=== PATIENT | male | born 1965 | race Caucasian/White ===

== ENCOUNTER → 2017-08-24 08:22 | Outpatient (CLI) | payer OTHER, SELFPAY ==
[2017-08-24 10:14] LABS: Thyroid Stimulating Hormone 3.32 uIU/ml (0.358-3.740)
== END ==
PROVIDERS: Visit Provider Family Medicine
DX: E03.9 Hypothyroidism, unspecified (principal)
CPT/HCPCS: 36415; 84443

== ENCOUNTER → 2018-01-26 08:19 | Outpatient (CLI) | payer OTHER, SELFPAY ==
[2018-01-26 12:01] LABS: Alanine Aminotransferase 18 U/L (12-78); Albumin Level 3.9 gm/dL (3.4-5.0); Albumin/Globulin Ratio 1.1 (1.1-1.8); Alkaline Phosphatase 96 U/L (46-116); Anion Gap 9.2 mEq/L (5-15); Aspartate Amino Transferase 11 U/L (15-37); Bilirubin,Total 0.7 mg/dL (0.2-1.0); Blood Urea Nitrogen 13 mg/dL (7-18); Carbon Dioxide 27 mmol/L (21.0-32.0); Chloride 108 mmol/L (98-107); Chol/HDL Ratio 5.2 (1-3.5); Cholesterol 225 mg/dL (140-200); Creatinine,Serum 1.13 mg/dL (0.70-1.30); Estimated Glomerular Filt Rate 68 ml/min (>60); Free T4 (Free Thyroxine) 0.98 ng/dl (0.76-1.46); GFR (African American) 82 ML/MIN (>60); Globulin 3.4 gm/dl (1.3-3.2); Glucose 94 mg/dL (74-106); HDL Cholesterol 43 mg/dL (27-67); LDL Cholesterol 133 mg/dL (0-130); Potassium 4.2 mmoL/L (3.5-5.1); Sodium 140 mmol/L (136-145); Thyroid Stimulating Hormone 3.48 uIU/ml (0.358-3.740); Total Protein,Serum 7.3 gm/dL (6.4-8.2); Triglycerides 245 mg/dL (30-200); VLDL Cholesterol 49 mg/dL (0-40)
== END ==
PROVIDERS: PCP Family Medicine; Visit Provider Family Medicine
DX: E78.5 Hyperlipidemia, unspecified (principal); E03.9 Hypothyroidism, unspecified; I10 Essential (primary) hypertension
CPT/HCPCS: 36415; 80053; 80061; 84439; 84443

== ENCOUNTER → 2019-02-08 09:00 | Outpatient (CLI) | payer OTHER, SELFPAY ==
[2019-02-08 10:52] LABS: Alanine Aminotransferase 13 U/L (12-78); Albumin Level 3.9 gm/dL (3.4-5.0); Albumin/Globulin Ratio 1.2 (1.1-1.8); Alkaline Phosphatase 84 U/L (46-116); Anion Gap 14.1 mEq/L (5-15); Aspartate Amino Transferase 9 U/L (15-37); Bilirubin,Total 0.6 mg/dL (0.2-1.0); Blood Urea Nitrogen 15 mg/dL (7-18); Calcium 9.1 mg/dL (8.5-10.1); Carbon Dioxide 26 mmol/L (21.0-32.0); Chloride 104 mmol/L (98-107); Chol/HDL Ratio 5.9 (1-3.5); Cholesterol 217 mg/dL (140-200); Creatinine,Serum 1.04 mg/dL (0.70-1.30); Estimated Glomerular Filt Rate 74 ml/min (>60); GFR (African American) 90 ML/MIN (>60); Globulin 3.3 gm/dl (1.3-3.2); Glucose 92 mg/dL (74-106); HDL Cholesterol 37 mg/dL (27-67); LDL Cholesterol 129 mg/dL (0-130); Potassium 4.1 mmoL/L (3.5-5.1); Prostate Specific Ag, Diagnost 0.88 ng/mL (0.0-4.0); Sodium 140 mmol/L (136-145); Thyroid Stimulating Hormone 3.45 uIU/ml (0.358-3.740); Total Protein,Serum 7.2 gm/dL (6.4-8.2); Triglycerides 255 mg/dL (30-200); VLDL Cholesterol 51 mg/dL (0-40)
== END ==
PROVIDERS: Visit Provider Family Medicine
DX: Z12.5 Encounter for screening for malignant neoplasm of prostate (principal); E78.5 Hyperlipidemia, unspecified; E03.9 Hypothyroidism, unspecified; I10 Essential (primary) hypertension
CPT/HCPCS: 36415; 80053; 80061; 84153; 84443

== ENCOUNTER → 2019-12-28 08:34 | Outpatient (CLI) | payer OTHER, SELFPAY ==
[2019-12-28 09:27] LABS: Basophils # 0.1 K/mm3 (0-0.2); Basophils % 1.2 % (0.1-2.0); Eosinophils # 0.3 K/mm3 (0.0-0.4); Eosinophils % 6.9 % (0.1-12.0); Hematocrit 44.5 % (42.0-52.0); Hemoglobin 15.3 g/dL (14.1-18.0); Lymphocytes # 1.6 K/mm3 (0.7-4.5); Lymphocytes % 34.9 % (10-50); Mean Corpuscular HGB Conc 34.4 g/dL (31.8-35.4); Mean Corpuscular Hemoglobin 30.5 pg (27.0-31.2); Mean Corpuscular Volume 88.6 fl (80-94); Mean Platelet Volume 7.6 fl (7.4-10.4); Monocytes # 0.3 K/mm3 (0.1-1.0); Monocytes % 6.3 % (1.7-9.3); Neutrophils # 2.3 K/mm3 (1.8-7.8); Neutrophils % 50.7 % (37.0-80.0); Platelet Count 212 K/mm3 (142-424); Red Blood Count 5.02 M/mm3 (4.60-6.20); Red Cell Distribution Width 13.2 % (11.5-17.5); White Blood Count 4.5 K/mm3 (4.8-10.8)
[2019-12-28 09:55] LABS: Chloride 107 mmol/L (98-107); Potassium 4.3 mmoL/L (3.5-5.1); Sodium 140 mmol/L (136-145)
[2019-12-28 09:57] LABS: Alanine Aminotransferase 13 U/L (12-78); Alkaline Phosphatase 79 U/L (38-126); Anion Gap 12.3 mEq/L (5-15); Aspartate Amino Transferase 22 U/L (17-59); Bilirubin,Total 0.6 mg/dl (0.2-1.3); Blood Urea Nitrogen 15 mg/dl (9-20); Carbon Dioxide 25 mmol/L (22.0-30.0); Estimated Glomerular Filt Rate 69 ml/min (>60); GFR (African American) 84 ML/MIN (>60)
[2019-12-28 09:58] LABS: Albumin Level 4.3 g/dl (3.5-5.0); Albumin/Globulin Ratio 1.4 (1.1-1.8); Calcium 9.6 mg/dl (8.4-10.2); Chol/HDL Ratio 4.8 (1-3.5); Cholesterol 231 mg/dl (140-200); Glucose 95 mg/dl (74-100); HDL Cholesterol 48 mg/dl (40-60); Total Protein,Serum 7.3 g/dl (6.3-8.2); Triglycerides 251 mg/dl (30-150); VLDL Cholesterol 50 mg/dL (0-40)
[2019-12-28 10:09] LABS: Direct LDL Cholesterol 130.04 mg/dL (100-129)
[2019-12-28 10:14] LABS: T4 (Thyroxine) 8.3 ug/dl (5.53-11.0)
[2019-12-28 10:28] LABS: Thyroid Stimulating Hormone 4.18 uIU/mL (0.465-4.68)
[2019-12-29 06:22] LABS: Testosterone,Total 373 ng/dL (264-916)
== END ==
PROVIDERS: PCP Family Medicine; Visit Provider Family Medicine
DX: I10 Essential (primary) hypertension (principal); E03.9 Hypothyroidism, unspecified; E78.5 Hyperlipidemia, unspecified; R53.83 Other fatigue; G47.30 Sleep apnea, unspecified; R06.83 Snoring
CPT/HCPCS: 36415; 80053; 80061; 84403; 84436; 84443; 85025; 95806

== ENCOUNTER 2020-05-08 10:17 | Emergency (ER) | payer OTHER, SELFPAY ==
[2020-05-08 10:54] VITALS: BP 144/93; PULSE 91; RESP 19; TEMP 36.6; O2SAT 98; BMI 32.0
--- NOTE | 2020-05-08 11:07 | HMH.EDUTC ---
[facility] Disposition Clinical Impression: Exposure to COVID-19 virus Left otitis media Qualifiers: Otitis media type: suppurative Chronicity: acute Recurrence: non-recurrent Spontaneous tympanic membrane rupture: without spontaneous rupture Qualified Code(s): H66.002 - Acute suppurative otitis media without spontaneous rupture of ear drum, left ear Disposition: Home, Self-Care Condition on Discharge: Good Instructions: Middle Ear Infection, Preventing the Spread of Coronavirus Discharge Instructions Additional Instructions: Drink plenty of fluids. Take tylenol for pain or fever. Take the medications as directed. Follow up with your regular doctor. GO TO THE ER FOR ANY WORSENING SYMPTOMS Prescriptions: predniSONE [Deltasone 10mg tablet] 10 mg PO BID 4 Days #8 tab Transmission Status: Received by [facility] Cefdinir [Omnicef 300mg Capsule] 300 mg PO BID #20 cap Transmission Status: Received by [facility] Referrals: Roberto Diaz MD [Primary Care Provider] - Time of Disposition: 11:20 Medical Decision Making - Medical Records Medical records reviewed: No: I reviewed the patient's medical records. - Khari Inquiry Pt receiving controlled substance: No Vital Signs: 05/08/20 10:54 05/08/20 11:36 Temperature 97.8 F 97.8 F Temperature Source Oral Pulse Rate 91 H Pulse Rate [Left] 91 H Respiratory Rate 19 19 Blood Pressure 144/93 H Blood Pressure [Right Arm] 144/93 H Blood Pressure Mean [Right Arm] 110 Blood Pressure Source [Right Arm] Automatic Cuff Blood Pressure Position [Right Arm] Supine 02 Sat by Pulse Oximetry 98 Oxygen Delivery Method Room Air - Lab Data Lab Results 05/08/20 10:00: Chlamy pneumoniae PCR Not detected, Adenovirus (PCR) Not detected, B. pertussis DNA (PCR) Not detected, Coronavirus OC43 (PCR) Not detected, Coronavirus HKU1 (PCR) Not detected, Coronavirus 229E (PCR) Not detected, SARS-CoV-2 (PCR) Detected A, Coronavirus NL63 (PCR) Not detected, Human Metapneumovir PCR Not detected, Influenza A (H1) PCR Not detected, Influ A (H1N1/09) PCR Not detected, Influenza A (H3) PCR Not detected, Influenza Type A (PCR) Not detected, Influenza Type B (PCR) Not detected, M. pneumoniae (PCR) Not detected, Parainfluenza 1 (PCR) Not detected, Parainfluenza 2 (PCR) Not detected, Parainfluenza 3 (PCR) Not detected, Parainfluenza 4 (PCR) Not detected, RSV (PCR) Not detected, Entero/Rhino (PCR) Not detected [facility] HPI - General Stated complaint: ear pain Time Seen by Provider: 05/08/20 11:07 Mode of Arrival: Ambulatory Source of Information: Patient Limitations: No Limitations Description of Symptoms (Recalled from Triage Doc. by RN): Left ear pain- Covid testing- exposure no symptoms HEENT Symptoms (Recalled from RN notes): No Resp Symptoms (Recalled from RN notes): No Skin Symptoms (Recalled from RN notes): No MS Symptoms (Recalled from RN notes): No Functional Status (Recalled from RN notes): wnl - History of Present Illness Provider Complaint: He c/o right ear pain for the past 2 days. He has also been exposed to covid recently (one of his coworkers has covid). He has had kind of frequent episodes of sinusitis over the past several months. He was last treated for a sinus infection around 3 weeks ago. - Related Data Home Medications Medication Instructions Recorded Confirmed Aspirin [Low Dose Aspirin EC] 81 mg PO DAILY 01/27/19 03/13/20 Levothyroxine Sodium 75 mcg PO DAILY 01/27/19 03/13/20 [Levothyroxine 75mcg (0.075mg) Tab] Niacin [Slo-Niacin] 250 mg PO DAILY 01/27/19 03/13/20 lisinopriL [Lisinopril 10mg Tab] 10 mg PO DAILY 01/27/19 03/13/20 Previous Rx's Medication Instructions Recorded Cefdinir [Omnicef 300mg Capsule] 300 mg PO BID #20 cap 05/08/20 predniSONE [Deltasone 10mg tablet] 10 mg PO BID 4 Days #8 tab 05/08/20 Allergies Allergy/AdvReac Type Severity Reaction Status Date / Time No Known Allergies Allergy V
[2020-05-08 11:36] VITALS: BP 144/93; PULSE 91; RESP 19; TEMP 36.6; O2SAT 98
[2020-05-08 12:25] LABS: Adenovirus,PCR Not Detected (NotDetected); Bordetella Pertussis Not Detected (NotDetected); Chlamydophila Pneumoniae, PCR Not Detected (NotDetected); Coronavirus 229E Not Detected (NotDetected); Coronavirus NL63 Not Detected (NotDetected); Coronavirus OC43 Not Detected (NotDetected); Coronovirus HKU1,PCR Not Detected (NotDetected); Human Metapneumovirus Not Detected (NotDetected); Influenza A, PCR Not Detected (NotDetected); Influenza AH1, 2009 Not Detected (NotDetected); Influenza AH1, PCR Not Detected (NotDetected); Influenza AH3,PCR Not Detected (NotDetected); Influenza B, PCR Not Detected (NotDetected); Mycoplasma Pneumoniae, PCR Not Detected (NotDetected); Parainfluenza 1, PCR Not Detected (NotDetected); Parainfluenza 2, PCR Not Detected (NotDetected); Parainfluenza 3, PCR Not Detected (NotDetected); Parainfluenza 4, PCR Not Detected (NotDetected); Respiratory Syncytial Virus Not Detected (NotDetected); Rhinovirus/Enterovirus Not Detected (NotDetected)
[2020-05-08 15:56] LABS: Coronavirus 19, PCR Detected (NotDetected)
--- NOTE | 2020-05-08 16:27 | PC.NURSE ---
PT NOTIFIED OF POSITIVE COVID TEST
== END 2020-05-08 11:37 | disposition home or self-care (01) ==
PROVIDERS: Emergency Provider Nurse Practitioner Family; PCP Family Medicine
DX: U07.1 COVID-19 (principal); H66.002 Acute suppurative otitis media without spontaneous rupture of ear drum, left ear; I10 Essential (primary) hypertension; Z87.442 Personal history of urinary calculi; E03.9 Hypothyroidism, unspecified; Z87.891 Personal history of nicotine dependence; Z79.899 Other long term (current) drug therapy
CPT/HCPCS: 87581; 87633; 87798; 99201; U0003

== ENCOUNTER → 2021-09-13 08:11 | Outpatient (CLI) | payer OTHER, SELFPAY ==
[2021-09-13 09:30] LABS: Alanine Aminotransferase 15 U/L (12-78); Albumin Level 4.4 g/dl (3.5-5.0); Albumin/Globulin Ratio 1.6 (1.1-1.8); Alkaline Phosphatase 89 U/L (38-126); Aspartate Amino Transferase 24 U/L (17-59); Bilirubin,Total 0.7 mg/dl (0.2-1.3); Blood Urea Nitrogen 14 mg/dl (9-20); Calcium 9.3 mg/dl (8.4-10.2); Carbon Dioxide 25 mmol/L (22.0-30.0); Chloride 106 mmol/L (98-107); Chol/HDL Ratio 5.3 (1-3.5); Cholesterol 243 mg/dl (140-200); Estimated Glomerular Filt Rate 69 ml/min (>60); GFR (African American) 84 ML/MIN (>60); Globulin 2.8 g/dL (1.3-3.2); Glucose 98 mg/dl (74-100); HDL Cholesterol 46 mg/dl (40-60); Sodium 138 mmol/L (136-145); Total Protein,Serum 7.2 g/dl (6.3-8.2); Triglycerides 257 mg/dl (30-150); VLDL Cholesterol 51 mg/dL (0-40)
[2021-09-13 09:41] LABS: Direct LDL Cholesterol 121.64 mg/dL (100-129)
[2021-09-13 09:47] LABS: Free T4 (Free Thyroxine) 1.15 ng/dl (0.78-2.19)
[2021-09-13 09:59] LABS: Prostate Specific Ag, Diagnost 0.937 ng/ml (0.0-4.0); Thyroid Stimulating Hormone 3.84 uIU/mL (0.465-4.68)
== END ==
PROVIDERS: Visit Provider Family Medicine
DX: E03.9 Hypothyroidism, unspecified (principal); I10 Essential (primary) hypertension; E78.5 Hyperlipidemia, unspecified; Z12.5 Encounter for screening for malignant neoplasm of prostate
CPT/HCPCS: 36415; 80053; 80061; 84153; 84439; 84443

== ENCOUNTER → 2022-09-17 07:48 | Outpatient (CLI) | payer OTHER, SELFPAY ==
[2022-09-17 09:06] LABS: Alanine Aminotransferase 15 U/L (12-78); Albumin/Globulin Ratio 1.5 (1.1-1.8); Alkaline Phosphatase 75 U/L (38-126); Anion Gap 14.1 mEq/L (5-15); Aspartate Amino Transferase 24 U/L (17-59); Bilirubin,Total 0.5 mg/dl (0.2-1.3); Blood Urea Nitrogen 15 mg/dl (9-20); Calcium 8.8 mg/dl (8.4-10.2); Carbon Dioxide 28 mmol/L (22.0-30.0); Chloride 101 mmol/L (98-107); Chol/HDL Ratio 4.2 (1-3.5); Cholesterol 193 mg/dl (140-200); Estimated Glomerular Filt Rate 62 ml/min (>60); GFR (African American) 76 ML/MIN (>60); Globulin 2.7 g/dL (1.3-3.2); Glucose 89 mg/dl (74-100); HDL Cholesterol 46 mg/dl (40-60); Potassium 4.1 mmoL/L (3.5-5.1); Sodium 139 mmol/L (136-145); Total Protein,Serum 6.7 g/dl (6.3-8.2); Triglycerides 151 mg/dl (30-150); VLDL Cholesterol 30 mg/dL (0-40)
[2022-09-17 09:17] LABS: Direct LDL Cholesterol 116.05 mg/dL (100-129)
[2022-09-17 09:37] LABS: Prostate Specific Ag Screen 1.9 ng/ml (0.0-4.0); Thyroid Stimulating Hormone 3.66 uIU/mL (0.465-4.68)
== END ==
PROVIDERS: PCP Family Medicine; Visit Provider Family Medicine
DX: E03.9 Hypothyroidism, unspecified (principal); I10 Essential (primary) hypertension; E78.5 Hyperlipidemia, unspecified; Z12.5 Encounter for screening for malignant neoplasm of prostate
CPT/HCPCS: 36415; 80053; 80061; 84443; G0103

== ENCOUNTER 2022-10-21 11:03 | Emergency (ER) | payer OTHER, SELFPAY ==
[2022-10-21 11:03] VITALS: BP 180/97; PULSE 108; RESP 18; TEMP 36.7; O2SAT 95; BMI 31.4
--- NOTE | 2022-10-21 11:14 | EXP.UTC ---
Discharge Plan Disposition Patient Disposition: Home, Self-Care Condition: Good Prescriptions Prescriptions: New azithromycin [Zithromax] 250 mg tablet 250 mg PO UD DOSE PK Qty: 6 0RF Rx Instructions: Take two (2) tablets today, then one (1) tablet days #2 thru #5 benzonatate [benzonatate] 100 mg capsule 100 mg PO TIDP PRN (Reason: Cough) Qty: 30 0RF No Action aspirin 81 MG tablet,delayed release (DR/EC) 81 mg PO DAILY levothyroxine 75 MCG tablet 75 mcg PO DAILY lisinopril 10 MG tablet 10 mg PO DAILY niacin 500 MG tablet extended release 250 mg PO DAILY prednisone 10 MG tablet 10 mg PO BID 4 Days Qty: 8 0RF cefdinir 300 MG capsule 300 mg PO BID Qty: 20 0RF Referrals Follow up/Referrals: Roberto Diaz MD [Primary Care Provider] - See instructions Activity Restrictions/Add. Instructions Additional Instructions/Restrictions: Drink plenty of fluids. Take tylenol or ibuprofen for pain or fever. Take the medications as directed. Follow up with your regular doctor. GO TO THE ER FOR ANY WORSENING SYMPTOMS Clinical Impressions Clinical Impression: Pharyngitis Instructions Patient Instructions: DI for Pharyngitis/Tonsillopharyngitis -- Adult, Azithromycin Discharge ED Provider: Jeffrey Tay [facility] General Stated complaint: Sore throat Mode of Arrival: Ambulatory Source of Information: Patient Limitations: No Limitations Time Seen by Provider: 10/21/22 11:14 Description of Symptoms (Recalled from Triage Doc. by RN): Patient reports a sore throat since Thursday. No other symptoms. HEENT Symptoms (Recalled from RN notes): Yes Resp Symptoms (Recalled from RN notes): No Skin Symptoms (Recalled from RN notes): No MS Symptoms (Recalled from RN notes): No Functional Status (Recalled from RN notes): wnl History of Present Illness Provider Complaint: He c/o sore throat and malaise for the past 3 days. Related Data Home Medications Medication Instructions Recorded Confirmed aspirin 81 mg tablet,delayed 81 mg PO DAILY Blood thinner 01/27/19 03/13/20 release levothyroxine 75 mcg tablet 75 mcg PO DAILY THYROID 01/27/19 03/13/20 lisinopril 10 mg tablet 10 mg PO DAILY BP 01/27/19 03/13/20 niacin 500 mg tablet,extended 250 mg PO DAILY UNNOWN 01/27/19 03/13/20 release Previous Rx's Medication Instructions Recorded cefdinir 300 mg capsule 300 mg PO BID #20 caps 05/08/20 prednisone 10 mg tablet 10 mg PO BID 4 days #8 tabs 05/08/20 azithromycin 250 mg tablet 250 mg PO UD DOSE PK #6 tabs 10/21/22 (Zithromax) benzonatate 100 mg capsule 100 mg PO TIDP PRN Cough #30 caps 10/21/22 Allergies Allergy/AdvReac Type Severity Reaction Status Date / Time No Known Allergies Allergy Verified 05/08/20 10:58 Worker's Comp Is this a Worker's Comp case?: No PFSH [facility] Disclaimer: The information contained in this section may have been updated after the patient was seen, as this information can be updated by other users. Social History Smoking Status: Never smoker second hand exposure: No alcohol intake: never substance use type: denies use current occupational status: employed Travel in the last 8 weeks: None household members: spouse and children housing: house current occupational exposures/hazards: No caffeine: No ROS Obtained: Yes All systems reviewed & no additional complaints except as documented Constitutional Constitutional: Reports chills and Reports fever(s) Eyes Eyes: Denies eye discharge ENT Ears, Nose, Mouth, and Throat: Reports as per HPI Cardiovascular Cardiovascular: Denies chest pain Respiratory Respiratory: Denies chest congestion and Reports cough Gastrointestinal Gastrointestingal: Reports nausea; Denies abdominal pain, constipation, cramping, diarrhea or vomiting Musculoskeletal Musculoskeletal: Denies arthralgias Integumentary/
[2022-10-21 11:18] LABS: UTC Strep Screen (Rapid) Negative (Negative)
[2022-10-21 11:43] VITALS: BP 180/97; PULSE 108; RESP 18; TEMP 36.7; O2SAT 95
== END 2022-10-21 11:44 | disposition home or self-care (01) ==
PROVIDERS: Emergency Provider Nurse Practitioner Family; PCP Family Medicine
DX: J02.9 Acute pharyngitis, unspecified (principal)
CPT/HCPCS: 87880; 99212; 99214; G0463

== ENCOUNTER 2023-09-07 08:34 | Outpatient (CLI) | payer OTHER, SELFPAY ==
[2023-09-07 09:30] LABS: Alanine Aminotransferase 16 U/L (12-78); Albumin Level 4.5 g/dl (3.5-5.0); Albumin/Globulin Ratio 1.7 (1.1-1.8); Alkaline Phosphatase 87 U/L (38-126); Aspartate Amino Transferase 25 U/L (17-59); Bilirubin,Total 0.7 mg/dl (0.2-1.3); Blood Urea Nitrogen 20 mg/dl (9-20); Calcium 9.7 mg/dl (8.4-10.2); Carbon Dioxide 25 mmol/L (22.0-30.0); Chloride 110 mmol/L (98-107); Chol/HDL Ratio 4.6 (1-3.5); Cholesterol 256 mg/dl (140-200); Estimated Glomerular Filt Rate 57 ml/min (>60); GFR (African American) 69 ML/MIN (>60); Globulin 2.7 g/dL (1.3-3.2); Glucose 97 mg/dl (74-100); HDL Cholesterol 56 mg/dl (40-60); Sodium 144 mmol/L (136-145); Total Protein,Serum 7.2 g/dl (6.3-8.2); Triglycerides 187 mg/dl (30-150); VLDL Cholesterol 37 mg/dL (0-40)
[2023-09-07 09:40] LABS: Direct LDL Cholesterol 137.22 mg/dL (100-129)
[2023-09-07 10:00] LABS: Thyroid Stimulating Hormone 3.35 uIU/mL (0.465-4.68)
== END 2023-09-07 23:59 | disposition home or self-care (01) ==
LOC: LAB 08:35
PROVIDERS: PCP Family Medicine; Visit Provider Family Medicine
DX: E78.5 Hyperlipidemia, unspecified (principal); E03.9 Hypothyroidism, unspecified; I10 Essential (primary) hypertension
CPT/HCPCS: 36415; 80053; 80061; 84443

== ENCOUNTER 2024-03-07 08:06 | Outpatient (CLI) | payer OTHER, SELFPAY ==
[2024-03-07 08:55] LABS: Albumin Level 4.5 g/dl (3.5-5.0); Chloride 106 mmol/L (98-107); Sodium 139 mmol/L (136-145)
[2024-03-07 08:56] LABS: Potassium 4.1 mmoL/L (3.5-5.1)
[2024-03-07 08:58] LABS: Alanine Aminotransferase 15 U/L (12-78); Albumin/Globulin Ratio 1.5 (1.1-1.8); Anion Gap 12.1 mEq/L (5-15); Aspartate Amino Transferase 22 U/L (17-59); Blood Urea Nitrogen 16 mg/dl (9-20); Carbon Dioxide 25 mmol/L (22.0-30.0); Estimated Glomerular Filt Rate 52 ml/min (>60); GFR (African American) 63 ML/MIN (>60); Total Protein,Serum 7.5 g/dl (6.3-8.2)
[2024-03-07 08:59] LABS: Alkaline Phosphatase 77 U/L (38-126); Bilirubin,Total 0.6 mg/dl (0.2-1.3); Chol/HDL Ratio 5.1 (1-3.5); Cholesterol 234 mg/dl (140-200); Glucose 103 mg/dl (74-100); HDL Cholesterol 46 mg/dl (40-60); Triglycerides 233 mg/dl (30-150); VLDL Cholesterol 47 mg/dL (0-40)
[2024-03-07 09:09] LABS: Direct LDL Cholesterol 135.28 mg/dL (100-129)
[2024-03-07 09:29] LABS: Thyroid Stimulating Hormone 5.53 uIU/mL (0.465-4.68)
== END 2024-03-07 23:59 | disposition home or self-care (01) ==
LOC: LAB 08:07
PROVIDERS: PCP Family Medicine; Visit Provider Family Medicine
DX: I10 Essential (primary) hypertension (principal); E78.5 Hyperlipidemia, unspecified; E03.9 Hypothyroidism, unspecified; Z12.5 Encounter for screening for malignant neoplasm of prostate
CPT/HCPCS: 36415; 80053; 80061; 84443; G0103

== ENCOUNTER 2024-10-19 08:23 | Outpatient (CLI) | payer OTHER, SELFPAY ==
--- OUTSIDE RECORDS SUMMARY | 2024-01-19 09:45 | XMS_ITS ---
[facility] [address] [place] [phone] Care Team Providers Care Medical Superintendent Name Role Phone Merlene Hearnian Primary Care Provider Nelson Diaz [phone] Allergies No Known Allergies Results Component Value Reference Range Notes H-TSH Reviewed date:03/07/2024 12:56:26 PM Interpretation: Performing Lab: Notes/Report: H-Lipid Panel Reviewed date:03/07/2024 12:56:39 PM Interpretation: Performing Lab: Notes/Report: H-CMP Reviewed date:03/07/2024 12:56:53 PM Interpretation: Performing Lab: Notes/Report: H-PSA Reviewed date:03/07/2024 12:57:13 PM Interpretation: Performing Lab: Notes/Report: REASON FOR VISIT CHECKUP, Needs labs with PSA, Tdap, & shingles vaccine Medications Medication SIG (Take, Route, Frequency, Duration) Notes Start Date End Date Status Levothyroxine Sodium 75 MCG 1 tab(s) ora lly once a day Active amLODIPine Besylate 10 MG 1 tablet Orall y Once a day Active Niacin ER 250 MG 1 tab(s) orally once a day Active Aspirin Adult Low Dose 81 MG 1 tab(s) or ally once a day Active amLODIPine Besylate 5 MG TAKE 1 TABLET B Y MOUTH ONCE DAILY for 30 Active Lisinopril 20 MG 1 tab(s) Orally once daily Active Vital Signs Blood pressure systolic 144 mm Hg 01/19/20 24 Blood pressure diastolic 90 mm Hg 024 Heart Rate 73 /min 01/19/2024 Height 68.50 in 01/19/2024 Weight 226 lbs 01/19/2024 BMI 33.86 kg/m2 01/19/2024 Encounters Encounter Location Date Provider Diagnosis [facility] [address] [facility] [address] [place] [phone] 01/19/2024 Nelson Diaz Essential hypertensi on I10 ; Dyslipidemia E78.5 ; Acquired hypothyroidism E03.9 and Screening for prostate cancer Z12.5 Assessments Encounter Date Diagnosis (ICD Code) Assessment Notes Treatment Notes Treatment Clinical Notes Section Notes 01/19/2024 Essential hypertension (ICD-10 - I10) 01/19/2024 Dyslipidemia (ICD-10 - E78.5) 01/19/2024 Acquired hypothyroidism (ICD-10 - E03.9) 01/19/2024 Screening for prostate cancer (ICD-10 - Z12.5) Plan Of Treatment Medication Medication Name Sig Start Date Stop Date Notes amLODIPine Besylate 10 MG 1 tablet Orally Once a day Lisinopril 20 MG 1 tab(s) Orally once daily Next Appt Details Follow Up: 3 Months, Reason: Progress Notes * HENOK GALDAMEZDOB: 5 (59 yo M)Acc No.[id number]:01/19/2024 Progress Notes Patient: HENOK NAVARRO Provider: Nelson Diaz M.D. :1965 A ge:58 Y S ex:Male Date:01/19/2024 Address:[address] [place] [address] [address] , [id number] Pcp:Solitario Hearn Subjective: * Chief Complaints: * 1 . CHECKUP. 2. Needs labs with PSA, Tdap, & shingles vaccine. * HPI: C ardiology: Pt presents today for a check up on hypertension. Overall his blood pressure is improved but still gets elevated systolic readings at home in the 140s. Diastolic readings are typically in the 80s. Denies : Chest Pain. D enies : Palpitations. D enies : Leg Edema. D enies : Headaches. * ROS: D ERMATOLOGY: no R agus. n o H martha. G ASTROENTEROLOGY: no N ausea. n o V omiting. n o D iarrhea.? U ROLOGY: no D ifficulty urinating. n o B lood in urine. * Medical History: H [place], Hyperlipidemia, COVID-19 infection - 05/2020. * Surgical History: n one . * Hospitalization/Major Diagno stic Procedure: c hest injury . * Family History: F ather: alive, heart disease. M other: alive. 3 son(s) - healthy. . * Social History: C URRENT TOBACCO USE S moking Status: Patient does NOT smoke, Second hand smoke exposure: No. C affeine: yes, frequency:. Exercise: no. Home smoke detector use: yes. Marital Status: . New since last visit: none. Occupation: [employer] Maintenance. Past smoking status: no. Recreational drug use: no. Alcohol: socially, Type: , Frequency: ,Years: , Determination:. * Medications: T aking Aspirin Adult Low Dose 81 MG Tablet Delayed Release 1 tab(s) orally once a day , Taking Niacin ER 250 MG Capsule Extended Release 1 tab(s) orally once a day , Taking Levothyroxine Sodium 75 MCG Tablet 1 tab(s) orally once a day , Taking Lisinopril 20 MG Tablet 1 tab(s) Orally once daily , Taking amLODIPine Besylate 5 MG Tablet TAKE 1 TABLET BY MOUTH ONCE DAILY , Medication List reviewed and reconciled with the patient * Allergies: N .K.D.A. Objective: * Vitals: W t:226, Temp:97.7, BP:144/90, HR:73, Nurse:JANNET, Ht: 68.50, BMI:33.86. * Examination: C ardiology: General Appearance: p leasant, NAD. Heart sounds: R RR, normal S1, S2. Murmur, click , gallop: n one. Lungs: c lear, no rales or wheezes. Extremities: n o leg edema. Assessment: * Assessment: 1. E ssential hypertension - I10 (Primary) 2 . D yslipidemia - E78.5 ? 3 . A cquired hypothyroidism - E03.9 4 . S creening for prostate cancer - Z12.5 Plan: * Treatment: * Labs: * L ab: H-Lipid Panel (Collection Date & Time - 03/07/2024) ?Lab: H-PSA (Collection Date & Time - 03/07/2024)* see duplicate order ?Lab: H-CMP (Collection Date & Time - 03/07/2024)* see duplicate order ?Lab: H-TSH (Collection Date & Time - 03/07/2024)* see duplicate order * Follow Up: 3 Months * Billing Information: * Visit Code: 80759 Office Visit, Est Pt., Level 3. * Procedure Codes: * Electronic signature of Nelson Diaz MD on 10/19/2024 at 08:26 AM EDT Sign off status: Pending * Provider: Nelson Diaz M.D. Date: 0 01/19/2024 Generated for Kalpana veronica/Rogelio/Gutierrez on: 0 10/19/2024 08:26 AM EDT History and Physical Notes * HPI (History of Present Illness) Category Sub-Category Detail Notes Category Not es Cardiology Chest Pain Palpitations Leg Edema Headaches Examination Category Sub-Category Detail Notes Category Not es Cardiology Lungs: clear, no rales or wheezes Heart sounds: RRR, normal S1, S2 Extremities: no leg edema Murmur, click , gallop: none General Appearance: pleasant, NAD
--- OUTSIDE RECORDS SUMMARY | 2024-03-15 06:45 | XMS_ITS ---
[facility] [address] [facility] [address] [facility] [address] [place] [phone] Care Team Providers Care Outside Machinist Supervisor Name Role Phone Solitario Hearn Primary Care Provider [phone] Nelson Mendoza [phone] Allergies No Known Allergies REASON FOR VISIT checkup, Needs shingles & Tdap. Medications Medication SIG (Take, Route, Frequency, Duration) Notes Start Date End Date Status Lisinopril 20 MG 1 tab(s) Orally once daily Active amLODIPine Besylate 10 MG 1 tablet Orall y Once a day Active Levothyroxine Sodium 88 MCG 1 tab(s) Ora lly once a day Active Aspirin Adult Low Dose 81 MG 1 tab(s) or ally once a day Active Niacin ER 250 MG 1 tab(s) orally once a day Active Vital Signs Blood pressure systolic 134 mm Hg 03/15/20 24 Blood pressure diastolic 80 mm Hg 024 Heart Rate 74 /min 03/15/2024 Height 68.50 in 03/15/2024 Weight 226.6 lbs 03/15/2024 BMI 33.95 kg/m2 03/15/2024 Encounters Encounter Location Date Provider Diagnosis [facility] [address] [facility] [address] [place] [phone] 03/15/2024 Nelson Diaz Essential hypertensi on I10 ; Dyslipidemia E78.5 and Acquired hypothyroidism E03.9 Assessments Encounter Date Diagnosis (ICD Code) Assessment Notes Treatment Notes Treatment Clinical Notes Section Notes 03/15/2024 Essential hypertension (ICD-10 - I10) 03/15/2024 Dyslipidemia (ICD-10 - E78.5) Reinforced diet 03/15/2024 Acquired hypothyroidism (ICD-10 - E03.9) Plan Of Treatment Medication Medication Name Sig Start Date Stop Date Notes Lisinopril 20 MG 1 tab(s) Orally once daily amLODIPine Besylate 10 MG 1 tablet Orally Once a day Levothyroxine Sodium 88 MCG 1 tab(s) Orally once a day Treatment Notes Assessment Notes Dyslipidemia Reinforced diet Next Appt Details Follow Up: 6 Months, Reason: Progress Notes * HENOK GALDAMEZDOB: 5 (59 yo M)Acc No.[id number]:03/15/2024 Progress Notes Patient: HENOK NAVARRO Provider: Nelson Diaz M.D. :1965 A ge:58 Y S ex:Male Date:03/15/2024 Address:[address] [place] [address], [facility], [id number] Pcp:Solitario Hearn Subjective: * Chief Complaints: * 1 . Checkup. 2. Needs shingles & Tdap.. * HPI: C ardiology: He returns today for follow-up on his blood pressure and review of recent blood work. He continues to monitor blood pressure at home and reports more consistently normal readings. * ROS: D ERMATOLOGY: no R agus. n o H martha. G ASTROENTEROLOGY: no N ausea. n o V omiting. n o D iarrhea.? U ROLOGY: no D ifficulty urinating. n o B lood in urine. * Medical History: H [place], Hyperlipidemia, COVID-19 infection - 05/2020, Mild renal insufficiency. * Surgical History: n one . * [...] . New since last visit: none. 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 Recreational drug [...] Orally once daily , Taking amLODIPine Besylate 10 MG Tablet 1 tablet Orally Once a day , Medication List reviewed and reconciled with the patient * Allergies: N .K.D.A. Objective: * Vitals: W t:226.6, Temp:97.9, BP:134/80, HR:74, Nurse:JANNET, Ht: 68.50, BMI:33.95. * Examination: C ardiology: General Appearance: p leasant, NAD. HEENT: u nremarkable. Carotid upstroke: n ormal, no bruits. Heart sounds: R RR, normal S1, S2. Murmur, click , gallop: n one. Lungs: c lear, no rales or wheezes. Extremities: n o leg edema. * Physical Examination: L ABS: See labs r eviewed with patient. TSH is elevated.? Lipids borderline high. Creatinine 1.4.. Assessment: * Assessment: 1. E ssential hypertension - I10 (Primary) 2 . D yslipidemia - E78.5 ? 3 . A cquired hypothyroidism - E03.9 Plan: * Treatment: 2. D yslipidemia Notes: Reinforced diet 3. A cquired hypothyroidism Increase Levothyroxine Sodium Tablet, 88 MCG, 1 tab(s), Orally, once a day, 90, Refills 1. ? * Follow Up: 6 Months * Billing Information: * Visit Code: 38177 Office Visit, Est Pt., Level 3. * Procedure Codes: * Electronic signature of Nelson Diaz MD on 10/19/2024 at 08:26 AM EDT Sign off status: Pending * Provider: Nelson Diaz M.D. Date: 05/15/2023 Generated for Kalpana veronica/Rogelio/Gutierrez on: 10/19/2024 08:26 AM EDT History and Physical Notes * Physical Examination Category Sub-Category Detail Notes Section Note s LABS See labs reviewed with danielle cárdenas. TSH is elevated. Lipids borderline high. Creatinine 1.4. Examination Category Sub-Category Detail Notes Category Not es Cardiology Lungs: clear, no rales or wheezes HEENT: unremarkable Heart sounds: RRR, normal S1, S2 Abdomen: Carotid upstroke: normal, no bruits Extremities: no leg edema Murmur, click , gallop: none General Appearance: pleasant, NAD
--- OUTSIDE RECORDS SUMMARY | 2024-10-13 11:45 | XMS_ITS ---
Author Organization [facility] Address [address] [facility] [address] [facility] [address] [place] [id number] Care Team Providers Care Drug Purchaser Name Role Phone Solitario Hearn Primary Care Provider [phone] Nelson Mendoza [phone] Allergies No Known Allergies REASON FOR VISIT check up, Needs labs, Tdap, & shingles vaccine Medications Medication SIG (Take, Route, Frequency, Duration) Notes Start Date End Date Status Lisinopril 20 MG 1 tab(s) Orally Once a day for 30 days Active Levothyroxine Sodium 88 MCG 1 tab(s) Ora lly once a day for 90 days Active Niacin ER 250 MG 1 tab(s) orally once a day Active Aspirin Adult Low Dose 81 MG 1 tab(s) or ally once a day Active amLODIPine Besylate 10 MG 1 tablet Orall y Once a day Active Lisinopril 20 MG 1 tab(s) Orally once daily Active Levothyroxine Sodium 88 MCG 1 tab(s) Ora lly once a day Active Vital Signs Blood pressure systolic 132 mm Hg 10/14/19 25 Blood pressure diastolic 70 mm Hg 025 Heart Rate 71 /min 10/13/2024 Height 68.50 in 10/13/2024 Weight 229.0 lbs 10/13/2024 BMI 34.31 kg/m2 10/13/2024 Encounters Encounter Location Date Provider Diagnosis [facility] [address] [facility] [address] [place] [phone] 10/13/2024 Nelson Diaz Essential hypertensi on I10 ; Dyslipidemia E78.5 and Acquired hypothyroidism E03.9 Assessments Encounter Date Diagnosis (ICD Code) Assessment Notes Treatment Notes Treatment Clinical Notes Section Notes 10/13/2024 Essential hypertension (ICD-10 - I10) 10/13/2024 Dyslipidemia (ICD-10 - E78.5) Reinforced diet 10/13/2024 Acquired hypothyroidism (ICD-10 - E03.9) Plan Of Treatment Medication Medication Name Sig Start Date Stop Date Notes amLODIPine Besylate 10 MG 1 tablet Orally Once a day Lisinopril 20 MG 1 tab(s) Orally once daily Levothyroxine Sodium 88 MCG 1 tab(s) Orally once a day Treatment Notes Assessment Notes Dyslipidemia Reinforced diet Pending Test Test Name Order Date H-TSH 10/13/2024 H-Lipid Panel 10/13/2024 H-CMP 10/13/2024 Next Appt Details Follow Up: 6 Months, Reason: Progress Notes * GALDAMEZ, HENOKDOB: 5 (59 yo M)Acc No.[id number]:10/13/2024 Progress Notes Patient: HENOK NAVARRO Provider: Nelson Diza M.D. :1965 A ge:59 Y S ex:Male Date:10/13/2024 Address:[address] [place], [place] [address] [address], [facility], [id number] Pcp:Solitario Hearn Subjective: * Chief Complaints: * 1 . Check up. 2. Needs labs, Tdap, & shingles vaccine. * HPI: H PI: 59 year old male presents with c/o Patient is here today for?Pt is here today for a check up. Pt sts he is doing well and has no concerns at this time. C ardiology: Blood pressure checks at home have been consistently normal. * ROS: D ERMATOLOGY: no R agus. [...] . New since last visit: none. 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 Recreational drug use: no. Alcohol: socially, Type: , Frequency: ,Years: , Determination:. * Medications: T aking amLODIPine Besylate 10 MG Tablet 1 tablet Orally Once a day , Taking Aspirin Adult Low Dose 81 MG Tablet Delayed Release 1 tab(s) orally once a day , Taking Niacin ER 250 MG Capsule Extended Release 1 tab(s) orally once a day , Taking Levothyroxine Sodium 88 MCG Tablet 1 tab(s) Orally once a day , Taking Lisinopril 20 MG Tablet 1 tab(s) Orally Once a day , Medication List reviewed and reconciled with the patient * Allergies: N .K.D.A. Objective: * Vitals: W t: 229.0, Temp: 97.9, BP: 132/70, HR: 71, Nurse: [facility], Ht: 68.50, BMI:34.31. * Examination: C ardiology: General Appearance: p [...] Notes: Reinforced diet 3. A cquired hypothyroidism Refill Levothyroxine Sodium Tablet, 88 MCG, 1 tab(s), Orally, once a day, 90, Refills 1. * Labs: * L ab: H-Lipid Panel L ab: H-CMP L ab: H-TSH * Follow Up: 6 Months * Billing Information: * Visit Code: 75907 Office Visit, Est Pt., Level 4. * Procedure Codes: * Electronic signature of Nelson Diaz MD on 10/19/2024 at 08:26 AM EDT Sign off status: Pending * Provider: Nelson Diaz M.D. Date: 10/13/2024 Generated for Kalpana veronica/Rogelio/Eliezeritting on: 0 10/19/2024 08:26 AM EDT History and Physical Notes * HPI (History of Present Illness) Category Sub-Category Detail Notes Category Not es HPI Patient is here today for Pt is here today for a check up. Pt sts he is doing well and has no concerns at this time Examination Category Sub-Category Detail Notes Category Not es Cardiology Lungs: clear, no rales or wheezes HEENT: unremarkable Heart sounds: RRR, normal S1, S2 Abdomen: Carotid upstroke: normal, no bruits Extremities: no leg edema Murmur, click , gallop: none General Appearance: pleasant, NAD
--- OUTSIDE RECORDS SUMMARY | 2024-10-19 08:26 | XMS_ITS | Patient Health Record ---
[facility] Address [address] [place] [id number] Care Team Providers Care Family Law Specialist Name Role Phone Merlene Hearnian Primary Care Provider [phone] Nelson Diaz Unavailable [phone] Allergies No Known Allergies Results Component Value Reference Range Notes H-TSH Reviewed date:03/07/2024 12:56:26 PM Interpretation: Performing Lab: Notes/Report: H-Lipid Panel Reviewed date:03/07/2024 12:56:39 PM Interpretation: Performing Lab: Notes/Report: H-CMP Reviewed date:03/07/2024 12:56:53 PM Interpretation: Performing Lab: Notes/Report: H-PSA Reviewed date:03/07/2024 12:57:13 PM Interpretation: Performing Lab: Notes/Report: H-TSH Reviewed date:03/15/2024 01:45:29 PM Interpretation:5.53 Performing Lab: Notes/Report: TSH 5.53 0.465-4.68 uIU/mL H-Lipid Panel Reviewed date:03/15/2024 01:45:29 PM Interpretation:TRIGS 233, CHOL 234, DLDL 135, VLDL 47, CHOL/HDL 5.1 Performing Lab: Notes/Report: Patient Fasting? Y TRIG 233 30-150 mg/dl CHOL 234 140-200 mg/dl DLDL 135.28 100-129 mg/dL VLDL 47 0-40 mg/dL HDL 46 40-60 mg/dl CHLHDL 5.1 1-3.5 H-CMP Reviewed date:03/15/2024 01:45:30 PM Interpretation:CR 1.4, GFR 52, GLUC 103 Performing Lab: Notes/Report: NA 139 136-145 mmol/L K 4.1 3.5-5.1 mmoL/L CL 106 98-107 mmol/L CO2 25 22.0-30.0 mmol/L GAP 12.1 5-15 mEq/L BUN 16 9-20 mg/dl CREATT 1.40 0.66-1.25 mg/dl GFRAA 63 >60 ML/MIN EGFR 52 >60 ml/min GLU 103 74-100 mg/dl CA 9.0 8.4-10.2 mg/dl BILIT 0.6 0.2-1.3 mg/dl AST 22 17-59 U/L ALT 15 12-78 U/L TP 7.5 6.3-8.2 g/dl ALB 4.5 3.5-5.0 g/dl GLOB 3.0 1.3-3.2 g/dL AGRATIO 1.5 1.1-1.8 ALP 77 38-126 U/L H-PSA Reviewed date:03/15/2024 01:45:30 PM Interpretation:Normal Performing Lab: Notes/Report: PSASC 1.0 0.0-4.0 ng/ml Medications Medication SIG (Take, Route, Frequency, Duration) [...] tab(s) Ora lly once a day Active Immunizations Vaccine Route Administration Date Status Comme nts COVID 19 Moderna Unknown 03/14/2021 Administered COVID 19 Moderna Unknown 04/12/2021 Administered Problems Problem Type SNOMED Code ICD Code Onset Dates Problem Status W/U Status Risk Notes Problem 43282878 Essential hypertension (I10) Active confirmed Problem 2569955 Vasomotor rhinit is (J30.0) Active confirmed Problem 886633538 Acquired hypothyroidism (E03.9) Active confirmed Problem 772970364 Dyslipidemia (E78.5) Active confirmed Problem 314196410 Sleep disorder breathing (G47.30) Active confirmed Vital Signs Heart Rate 71 /min 10/13/2024 Blood pressure diastolic 70 mm Hg 10/13/2024 Height 68.50 in 10/13/2024 Blood pressure systolic 132 mm Hg 10/13/2024 Weight 229.0 lbs 10/13/2024 BMI 34.31 kg/m2 10/13/2024 Encounters Encounter Location Date Provider Diagnosis [facility] [address] [place] [address] [place] [phone] 01/19/2024 R Toribio Joe Essential hypertensi on I10 ; Dyslipidemia E78.5 ; Acquired hypothyroidism E03.9 and Screening for prostate cancer Z12.5 [facility] [address] [place] [address] [place] [id number] 03/15/2024 R Toribio Joe Essential hypertensi on I10 ; Dyslipidemia E78.5 and Acquired hypothyroidism E03.9 [facility] [place] [id number] 10/13/2024 R Toribio Joe Essential hypertensi on I10 ; Dyslipidemia E78.5 and Acquired hypothyroidism E03.9 [facility] [address] [place] [address] [place] [phone] 09/14/2024 Solitario Hearn Assessments Encounter Date Diagnosis (ICD Code) Assessment Notes Treatment Notes Treatment Clinical Notes Section Notes 01/19/2024 Essential hypertension (ICD-10 - I10) 01/19/2024 Dyslipidemia (ICD-10 - E78.5) 03/15/2024 Essential hypertension (ICD-10 - I10) 03/15/2024 Dyslipidemia (ICD-10 - E78.5) Reinforced diet 10/13/2024 Essential hypertension (ICD-10 - I10) 10/13/2024 Dyslipidemia (ICD-10 - E78.5) Reinforced diet 03/15/2024 Acquired hypothyroidism (ICD-10 - E03.9) 01/19/2024 Acquired hypothyroidism (ICD-10 - E03.9) 01/19/2024 Screening for prostate cancer (ICD-10 - Z12.5) 10/13/2024 Acquired hypothyroidism (ICD-10 - E03.9) Plan Of Treatment Pending Test Test Name Order Date H-TSH 10/13/2024 H-Lipid Panel 10/13/2024 H-CMP 10/13/2024 Insurance Providers Payer Name Payer Address Payer Phone Subscriber Number Group Number Insured Name Patient Relationship to Insured Coverage Start Date Coverage End Date [facility] [address] [address] [place] [phone] [id number] HENOK GALDAMEZ Self - patient is the insured Medications Administered Medication Instructions Date of Administration Dosage Notes Depo- Medrol 40 mg/ml 10/06/2018 1 mL Lidocaine w/Na Bicarb 10/06/2018 1.25 mL Medical (General) History Medical History History ICD Code HTN hyperlipidemia COVID-19 infection - 05/2020 Mild renal insufficiency Surgical History Surgery Date(Month/Year) none Hospitalization History Reason Date(Month/Year) chest injury
[2024-10-19 09:31] LABS: Albumin Level 4.5 g/dl (3.5-5.0); Chloride 108 mmol/L (98-107); Sodium 139 mmol/L (136-145)
[2024-10-19 09:32] LABS: Potassium 4.7 mmoL/L (3.5-5.1)
[2024-10-19 09:34] LABS: Alanine Aminotransferase 15 U/L (12-78); Anion Gap 7.7 mEq/L (5-15); Aspartate Amino Transferase 26 U/L (17-59); Blood Urea Nitrogen 18 mg/dl (9-20); Carbon Dioxide 28 mmol/L (22.0-30.0); Estimated Glomerular Filt Rate 62 ml/min (>60); GFR (African American) 75 ML/MIN (>60)
[2024-10-19 09:35] LABS: Albumin/Globulin Ratio 1.5 (1.1-1.8); Alkaline Phosphatase 85 U/L (38-126); Bilirubin,Total 0.6 mg/dl (0.2-1.3); Calcium 9.4 mg/dl (8.4-10.2); Chol/HDL Ratio 5.4 (1-3.5); Cholesterol 236 mg/dl (140-200); Glucose 93 mg/dl (74-100); HDL Cholesterol 44 mg/dl (40-60); Total Protein,Serum 7.5 g/dl (6.3-8.2); Triglycerides 200 mg/dl (30-150); VLDL Cholesterol 40 mg/dL (0-40)
[2024-10-19 09:48] LABS: Direct LDL Cholesterol 130.84 mg/dL (100-129)
[2024-10-19 10:08] LABS: Thyroid Stimulating Hormone 3.01 uIU/mL (0.465-4.68)
== END 2024-10-19 23:59 | disposition home or self-care (01) ==
LOC: LAB 08:24
PROVIDERS: PCP Family Medicine; Visit Provider Family Medicine
DX: I10 Essential (primary) hypertension (principal); E03.9 Hypothyroidism, unspecified; E78.5 Hyperlipidemia, unspecified
CPT/HCPCS: 36415; 80053; 80061; 84443